=== PATIENT | male | born 1965 | race Caucasian/White ===

== ENCOUNTER 2018-09-19 10:42 | Inpatient (IN) ==
[2018-09-19 11:17] LABS: Eosinophils % 0.5 %; Hematocrit 43.7 % (37.5-50.1); Hemoglobin 13.7 g/dL (12.9-16.9); Immature Granulocytes % 0.2 % (0-4); Lymphocytes % 25.3 %; Mean Corpuscular HGB Conc 31.4 g/dL (31.6-35.5); Mean Corpuscular Hemoglobin 30.9 pg (28.0-33.3); Mean Corpuscular Volume 98.4 fL (83.0-100.0); Mean Platelet Volume 8.8 fL (9.4-12.4); Monocytes % 6.3 %; Platelet Count 287 K/mcL (140-400); Red Blood Count 4.44 M/mcL (4.19-5.50); Red Cell Distribution Width 13.9 % (11.5-14.5)
[2018-09-19 11:18] LABS: Basophils # 0.1 K/mcL (0.0-0.2); Basophils % 0.7 %; Lymphocytes # 2.1 K/mcL (0.6-4.6); Monocytes # 0.5 K/mcL (0.0-1.3); Neutrophils # 5.5 K/mcL (1.6-8.9)
[2018-09-19] MEDS ORDERED: Isovue-370 500 ML BOTTLE IVP ONE ×3 (11:21→18:01)
[2018-09-19 11:26] LABS: INR 1.2
[2018-09-19 11:28] LABS: Activated Partial Thrombo Time 31.4 Seconds (26.0-36.0)
--- NOTE | 2018-09-19 11:28 | Emergency Department Note ---
Disposition Clinical Impression: Elevated brain natriuretic peptide (BNP) level Atrial fibrillation Qualifiers: Atrial fibrillation type: unspecified Qualified Code(s): I48.91 - Unspecified atrial fibrillation Fluid overload Qualifiers: Hypervolemia type: unspecified Qualified Code(s): E87.70 - Fluid overload, unspecified Dyspnea Qualifiers: Dyspnea type: unspecified Qualified Code(s): R06.00 - Dyspnea, unspecified Disposition: Admitted As Inpatient Condition: Fair Referrals: NONE,PCP [Primary Care Provider] - Forms: ED Satisfaction Letter General Adult HPI - General Chief complaint: ED Chest Pain Stated complaint: LETTY Time Seen by Provider: 09/19/18 10:48 Source: patient Limitations: no limitations Nursing Notes Reviewed: Yes Vital Signs Reviewed: Yes - History of Present Illness HPI Narrative: Patient is a 53-year-old male with past medical history including coronary artery disease, atrial fibrillation and defibrillator placement, presenting with chief complaint of shortness of breath for the past 2 weeks. 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 He complains of progressively worsening shortness of breath for the past 2 weeks. He states anything to make it worse. He woke up this morning significantly short of breath and complains of occasional left-si ded chest pain. He also complains of generalized abdominal pain that is sharp. He states he had 1 bowel movement without blood. He denies nausea or vomiting. Pain Scale: 0 - Related Data Home Medications Medication Instructions Recorded Confirmed Furosemide [Lasix] 20 mg PO DAILY PRN 12/04/17 12/04/17 Previous Rx's Medication Instructions Recorded Ibuprofen 800 mg PO 2-3XD PRN #30 tablet 12/04/17 Allergies Allergy/AdvReac Type Severity Reaction Status Date / Time No Known Allergies Allergy Verified 12/04/17 07:19 All systems ED: reviewed and negative except as stated. Review of Systems: As Per HPI Constitutional: Denies: fever, chills Cardiovascular: Reports: chest pain, palpitations Respiratory: Reports: dyspnea. Denies: cough Gastrointestinal: Reports: abdominal pain. Denies: nausea, vomiting, diarrhea Genitourinary: Denies: dysuria, hematuria Musculoskeletal: Denies: back pain Past Medical History - Past Medical History Attestation: Yes The following information was validated with the patient. Source: patient Medical history: Reports: atrial fibrillation, hypertension, myocardial infarction Psychiatric history: Reports: no psych history - Social History Smoking Status: Current every day smoker Alcohol use: Reports: occasionally Drug use: Reports: marijuana Physical Exam - General Limitations: no limitations General appearance: alert, in no apparent distress - Head Head exam: atraumatic, normocephalic - Eye Eye exam: Present: normal appearance, EOMI - ENT ENT exam: normal exam, normal oropharynx - Neck Neck exam: Present: normal inspection, trachea midline - Chest Chest inspection: Present: normal inspection, symmetric chest wall rise - Respiratory Respiratory exam: Present: normal lung sounds bilaterally. Absent: respiratory distress, wheezes - Cardiovascular Cardiovascular exam: Present: other (Irregularly irregular rhythm) - Abdominal Exam Abdominal exam: Present: other (Distended abdomen with generalized tenderness and guarding) - Extremities Exam Extremities exam: Present: normal capillary refill. Absent: pedal edema - Neurological Exam Neurological exam: Present: alert, oriented X3 - Psychiatric Psychiatric exam: Present: normal affect, normal mood - Skin Skin exam: Present: warm, dry, intact. Absent: diaphoresis, pallor Course Vital Signs Temperature 98.6 F 09/19/18 10:56 Pulse Rate 162 09/19/18 10:56 Respiratory Rate 30 09/19/18 10:56 Blood Pressure 149/11 09/19/18 10:56 O2 Sat by Pulse Oximetry 96 09/19/18 10:56 Temperature 98.6 F 09/19/18 10:56 Pulse Rate 118 09/19/18 11:37 Respiratory Rate 24 09/19/18 11:37 Blood Pressure 122/82 09/19/18 11:37 O2 Sat by Pulse Oximetry 92 09/19/18 11:37 Oxygen Delivery Oxygen Delivery Nasal Cannula Medical Decision Making - [facility] Narrative Medical decision making narrative: Patient stopped all of his medications 5 years ago. He has history of atrial fibrillation. He is not taking any anticoagulation states he used to take Pradaxa accepted. He states his defibrillator shocked him a month ago. He is presenting with significantly worsening shortness of breath and abdominal pain. He is in atrial fibrillation with RVR. Not requiring oxygen at this time. He does have significant abdominal distention, tenderness with guarding. We will give the patient a Cardizem bolus followed by titrated Cardizem drip. Once his heart rate is better controlled, will obtain CTA of his abdomen and pelvis to ru le out mesenteric ischemia versus other acute pathology. We will also obtain CBC, BMP, BNP, troponin, chest x-ray, hepatic panel, ethanol level as the patient has history of alcohol use. 12:45 Labs reviewed. BNP is elevated. CT abdomen and pelvis shows significant edema and third spacing. There is no evidence of acute mesenteric ischemia. We will give the patient 40 mg IV Lasix. Heart rate is improved to 115-125 on 5mg of Cardizem drip. Patient states he does feel a little bit better. Discussed with Dr. Collins, hospitalist, who accepts admission for atrial fibrillation with RVR on Cardizem drip and fluid overload. - Medical Records Medical records reviewed: Yes I reviewed the patient's medical records. - Lab Data Lab results reviewed: Yes I reviewed the patient's lab results. Result diagrams: 09/19/18 11:02 09/19/18 11:02 Lab Results 09/19/18 09/19/18 09/19/18 Range/Units 11:02 11:02 11:02 WBC 8.1 (4.3-11.1) K/mcL RBC 4.44 (4.19-5.50) M/mcL Hgb 13.7 (12.9-16.9) g/dL Hct 43.7 (37.5-50.1) % MCV 98.4 (83.0-100.0) fL MCH 30.9 (28.0-33.3) pg MCHC 31.4 L (31.6-35.5) g/dL RDW 13.9 (11.5-14.5) % Plt Count 287 (140-400) K/mcL MPV 8.8 L (9.4-12.4) fL Immature Gran % 0.2 (0-4) % Seg Neutrophils % 67.0 % Lymphocytes % 25.3 % Monocytes % 6.3 % Eosinophils % 0.5 % Basophils % 0.7 % Neutrophils # 5.5 (1.6-8.9) K/mcL Lymphocytes # 2.1 (0.6-4.6) K/mcL Monocytes # 0.5 (0.0-1.3) K/mcL Eosinophils # 0.0 (0.0-0.6) K/mcL Basophils # 0.1 (0.0-0.2) K/mcL PT 13.0 H (9.4-12.1) Seconds INR 1.2 APTT 31.4 (26.0-36.0) Seconds Sodium 139 (136-145) mEq/L Potassium 4.8 (3.5-5.1) mEq/L Chloride 101 (98-107) mEq/L Carbon Dioxide 30 H (23-29) mEq/L BUN 16 (6-20) mg/dL Creatinine 0.90 (0.70-1.30) mg/dL Est GFR ( Amer) > 60 (> 60) Est GFR (Non-Af Amer) > 60 (> 60) BUN/Creatinine Ratio 18 (6-26) Glucose 148 H (70-105) mg/dL Calculated Osmolality 292 (280-300) Calcium 8.9 (8.6-10.3) mg/dL Total Bilirubin 0.6 (0.3-1.0) mg/dL Direct Bilirubin 0.2 (0.0-0.2) mg/dL Indirect Bilirubin 0.4 (0.0-1.2) mg/dL AST 11 L (13-39) Units/L ALT 17 (7-52) Units/L Alkaline Phosphatase 81 (34-104) Units/L Troponin I < 0.03 (< 0.04) ng/mL B-Natriuretic Peptide (Less than 100) pg/mL Serum Total Protein 6.5 (6.4-8.9) g/dL Albumin 3.9 (3.5-5.7) g/dL Globulin 2.6 (2.4-3.5) g/dL Albumin/Globulin Ratio 1.5 (1.1-2.2) Ethyl Alcohol < 10 (Less than 10) mg/dL 09/19/18 Range/Units 11:02 WBC (4.3-11.1) K/mcL RBC (4.19-5.50) M/mcL Hgb (12.9-16.9) g/dL Hct (37.5-50.1) % MCV (83.0-100.0) fL MCH (28.0-33.3) pg MCHC (31.6-35.5) g/dL RDW (11.5-14.5) % Plt Count (140-400) K/mcL MPV (9.4-12.4) fL Immature Gran % (0-4) % Seg Neutrophils % % Lymphocytes % % Monocytes % % Eosinophils % % Basophils % % Neutrophils # (1.6-8.9) K/mcL Lymphocytes # (0.6-4.6) K/mcL Monocytes # (0.0-1.3) K/mcL Eosinophils # (0.0-0.6) K/mcL Basophils # (0.0-0.2) K/mcL PT (9.4-12.1) Seconds INR APTT (26.0-36.0) Seconds Sodium (136-145) mEq/L Potassium (3.5-5.1) mEq/L Chloride (98-107) mEq/L Carbon Dioxide (23-29) mEq/L BUN (6-20) mg/dL Creatinine (0.70-1.30) mg/dL Est GFR ( Amer) (> 60) Est GFR (Non-Af Amer) (> 60) BUN/Creatinine Ratio (6-26) Glucose (70-105) mg/dL Calculated Osmolality (280-300) Calcium (8.6-10.3) mg/dL Total Bilirubin (0.3-1.0) mg/dL Direct Bilirubin (0.0-0.2) mg/dL Indirect Bilirubin (0.0-1.2) mg/dL AST (13-39) Units/L ALT (7-52) Units/L Alkaline Phosphatase (34-104) Units/L Troponin I (< 0.04) ng/mL B-Natriuretic Peptide 530 H (Less than 100) pg/mL Serum Total Protein (6.4-8.9) g/dL Albumin (3.5-5.7) g/dL Globulin (2.4-3.5) g/dL Albumin/Globulin Ratio (1.1-2.2) Ethyl Alcohol (Less than 10) mg/dL - Radiology Data Radiology results reviewed: Yes I reviewed the patient's radiology results. Chest X-Ray 09/19/18 10:47 IMPRESSION: Cardiomegaly with mild pulmonary edema. Right basilar opacities, which could represent atelectasis or pneumonia. D/ / Giorgio Hearn MD / Giorgio Hearn MD Interpreting Provider: Giorgio Hearn MD Abdomen/Pelvis CTA 09/19/18 11:21 IMPRESSION: 1. No evidence of mesenteric ischemia. 2. Findings compatible with diffuse 3rd spacing/elevated central venous pressures, including interstitial pulmonary edema, small to moderate bilateral pleural effusions, small amount of ascites, and diffuse soft tissue anasarca. 3. Severe edema of the gallbladder wall, which is favored to be related to the diffusely edematous state. No gallstones are seen. D/ / 09/19/2018 12:20:57 iGorgio Hearn MD / earnold Interpreting Provider: Giorgio Hearn MD - EKG Data EKG #1 EKG attestation: Yes I reviewed and interpreted this EKG. EKG results narrative: EKG obtained at 1053 shows atrial fibrillation with rapid ventricular rate with heart rate 166, QRS duration 85, QTC 296, QTC 492. No ST elevation or depression. There are T-wave inversions in V6. Compared to old EKG on 12/15/2013 which at that time showed sinus bradycardia.
--- NOTE | 2018-09-19 11:29 | Emergency Department Note ---
Disposition Clinical Impression: Elevated brain natriuretic peptide (BNP) level Atrial fibrillation Qualifiers: Atrial fibrillation type: unspecified Qualified Code(s): I48.91 - Unspecified atrial fibrillation Fluid overload Qualifiers: Hypervolemia type: unspecified Qualified Code(s): E87.70 - Fluid overload, unspecified Dyspnea Qualifiers: Dyspnea type: unspecified Qualified Code(s): R06.00 - Dyspnea, unspecified Disposition: Admitted As Inpatient Condition: Fair General Adult HPI - General Chief complaint: ED Chest Pain Stated complaint: LETTY Time Seen by Provider: 09/19/18 10:48 Source: patient Limitations: no limitations Nursing Notes Reviewed: Yes Vital Signs Reviewed: Yes - History of Present Illness Pain Scale: 0 - Related Data Home Medications Medication Instructions Recorded Confirmed Furosemide [Lasix] 20 mg PO DAILY PRN 12/04/17 12/04/17 Previous Rx's Medication Instructions Recorded Ibuprofen 800 mg PO 2-3XD PRN #30 tablet 12/04/17 Allergies Allergy/AdvReac Type Severity Reaction Status Date / Time No Known Allergies Allergy Verified 12/04/17 07:19 Past Medical History - Past Medical History Medical history: Reports: atrial fibrillation, hypertension, myocardial infarction Psychiatric history: Reports: no psych history - Social History Smoking Status: Current every day smoker Alcohol use: Reports: occasionally Drug use: Reports: marijuana Physical Exam - General Limitations: no limitations General appearance: alert, in no apparent distress Course Vital Signs Temperature 98.6 F 09/19/18 10:56 Pulse Rate 162 09/19/18 10:56 Respiratory Rate 30 09/19/18 10:56 Blood Pressure 149/11 09/19/18 10:56 O2 Sat by Pulse Oximetry 96 09/19/18 10:56 Temperature 98.6 F 09/19/18 10:56 Pulse Rate 132 09/19/18 13:36 Respiratory Rate 26 09/19/18 13:07 Blood Pressure 144/95 09/19/18 13:36 O2 Sat by Pulse Oximetry 91 09/19/18 13:07 Oxygen Delivery Oxygen Delivery Nasal Cannula Medical Decision Making - [facility] Narrative Medical decision making narrative: Chest X-Ray 09/19/18 10:47 IMPRESSION: Cardiomegaly with mild pulmonary edema. Right basilar opacities, which could represent atelectasis or pneumonia. D/ / Giorgio Hearn MD / Giorgio Hearn MD Interpreting Provider: Giorgio Hearn MD 1220 hrs.: Patient sees CT and chest x-ray is back were in a bring him into the hospital with acute exacerbation of heart failure A. fib with RVR. Patient's agreement with this plan. Chest X-Ray 09/19/18 10:47 IMPRESSION: Cardiomegaly with mild pulmonary edema. Right basilar opacities, which could represent atelectasis or pneumonia. D/ / Giorgio Hearn MD / Giorgio Hearn MD Interpreting Provider: Giorgio Hearn MD Abdomen/Pelvis CTA 09/19/18 11:21 IMPRESSION: 1. No evidence of mesenteric ischemia. 2. Findings compatible with diffuse 3rd spacing/elevated central venous pressures, including interstitial pulmonary edema, small to moderate bilateral pleural effusions, a small amount of ascites, and diffuse soft tissue anasarca. 3. Severe edema of the gallbladder wall is present, which is favored to be related to the diffusely edematous state. No gallstones are seen. D/ / Giorgio Hearn MD / Giorgio Hearn MD Interpreting Provider: Giorgio Hearn MD - Lab Data Result diagrams: 09/19/18 11:02 09/19/18 11:02 Lab Results 09/19/18 09/19/18 09/19/18 Range/Units 11:02 11:02 11:02 WBC 8.1 (4.3-11.1) K/mcL RBC 4.44 (4.19-5.50) M/mcL Hgb 13.7 (12.9-16.9) g/dL Hct 43.7 (37.5-50.1) % MCV 98.4 (83.0-100.0) fL MCH 30.9 (28.0-33.3) pg MCHC 31.4 L (31.6-35.5) g/dL RDW 13.9 (11.5-14.5) % Plt Count 287 (140-400) K/mcL MPV 8.8 L (9.4-12.4) fL Immature Gran % 0.2 (0-4) % Seg Neutrophils % 67.0 % Lymphocytes % 25.3 % Monocytes % 6.3 % Eosinophils % 0.5 % Basophils % 0.7 % Neutrophils # 5.5 (1.6-8.9) K/mcL Lymphocytes # 2.1 (0.6-4.6) K/mcL Monocytes # 0.5 (0.0-1.3) K/mcL Eosinophils # 0.0 (0.0-0.6) K/mcL Basophils # 0.1 (0.0-0.2) K/mcL PT 13.0 H (9.4-12.1) Seconds INR 1.2 APTT 31.4 (26.0-36.0) Seconds Sodium 139 (136-145) mEq/L Potassium 4.8 (3.5-5.1) mEq/L Chloride 101 (98-107) mEq/L Carbon Dioxide 30 H (23-29) mEq/L BUN 16 (6-20) mg/dL Creatinine 0.90 (0.70-1.30) mg/dL Est GFR ( Amer) > 60 (> 60) Est GFR (Non-Af Amer) > 60 (> 60) BUN/Creatinine Ratio 18 (6-26) Glucose 148 H (70-105) mg/dL Calculated Osmolality 292 (280-300) Calcium 8.9 (8.6-10.3) mg/dL Phosphorus 4.6 H (2.7-4.5) mg/dL Magnesium 2.1 (1.6-2.6) mg/dL Total Bilirubin 0.6 (0.3-1.0) mg/dL Direct Bilirubin 0.2 (0.0-0.2) mg/dL Indirect Bilirubin 0.4 (0.0-1.2) mg/dL AST 11 L (13-39) Units/L ALT 17 (7-52) Units/L Alkaline Phosphatase 81 (34-104) Units/L Troponin I < 0.03 (< 0.04) ng/mL B-Natriuretic Peptide (Less than 100) pg/mL Serum Total Protein 6.5 (6.4-8.9) g/dL Albumin 3.9 (3.5-5.7) g/dL Globulin 2.6 (2.4-3.5) g/dL Albumin/Globulin Ratio 1.5 (1.1-2.2) Triglycerides 109 (< 150) mg/dL Cholesterol 116 (< 200) mg/dL LDL Cholesterol, Calc 59 (0-99) mg/dL VLDL Cholesterol, Calc 22 (< 31) mg/dL HDL Cholesterol 35 L (40-59) mg/dL Cholesterol/HDL Ratio 3.3 (0-4.9) Ethyl Alcohol < 10 (Less than 10) mg/dL 09/19/18 Range/Units 11:02 WBC (4.3-11.1) K/mcL RBC (4.19-5.50) M/mcL Hgb (12.9-16.9) g/dL Hct (37.5-50.1) % MCV (83.0-100.0) fL MCH (28.0-33.3) pg MCHC (31.6-35.5) g/dL RDW (11.5-14.5) % Plt Count (140-400) K/mcL MPV (9.4-12.4) fL Immature Gran % (0-4) % Seg Neutrophils % % Lymphocytes % % Monocytes % % Eosinophils % % Basophils % % Neutrophils # (1.6-8.9) K/mcL Lymphocytes # (0.6-4.6) K/mcL Monocytes # (0.0-1.3) K/mcL Eosinophils # (0.0-0.6) K/mcL Basophils # (0.0-0.2) K/mcL PT (9.4-12.1) Seconds INR APTT (26.0-36.0) Seconds Sodium (136-145) mEq/L Potassium (3.5-5.1) mEq/L Chloride (98-107) mEq/L Carbon Dioxide (23-29) mEq/L BUN (6-20) mg/dL Creatinine (0.70-1.30) mg/dL Est GFR ( Amer) (> 60) Est GFR (Non-Af Amer) (> 60) BUN/Creatinine Ratio (6-26) Glucose (70-105) mg/dL Calculated Osmolality (280-300) Calcium (8.6-10.3) mg/dL Phosphorus (2.7-4.5) mg/dL Magnesium (1.6-2.6) mg/dL Total Bilirubin (0.3-1.0) mg/dL Direct Bilirubin (0.0-0.2) mg/dL Indirect Bilirubin (0.0-1.2) mg/dL AST (13-39) Units/L ALT (7-52) Units/L Alkaline Phosphatase (34-104) Units/L Troponin I (< 0.04) ng/mL B-Natriuretic Peptide 530 H (Less than 100) pg/mL Serum Total Protein (6.4-8.9) g/dL Albumin (3.5-5.7) g/dL Globulin (2.4-3.5) g/dL Albumin/Globulin Ratio (1.1-2.2) Triglycerides (< 150) mg/dL Cholesterol (< 200) mg/dL LDL Cholesterol, Calc (0-99) mg/dL VLDL Cholesterol, Calc (< 31) mg/dL HDL Cholesterol (40-59) mg/dL Cholesterol/HDL Ratio (0-4.9) Ethyl Alcohol (Less than 10) mg/dL Attestation Statement - Attestation Attestation: This documentation is done with the assistance of Dragon dictation. Despite efforts made to ensure accuracy, there may be inaccuracies in vendor representatives or spelling and typographical errors. I examined this patient and my medical decision-making was reviewed with the Resident Physician. I agree with the documented findings, disposition and treatment plan as described except to the extent set forth below. Patient presents today in the emergency department seen by Dr. baker and myself, I agree with her evaluation and management plan, supervise care the patient's stay. Dominguez turcios presents today with abdominal pain and irregular heartbeat. History of atrial fibrillation. Has not seen his doctor and some years. No chest pain. Going to do a workup on him start him on Cardizem to control his rate CT his abdomen he will need admission. He is in agreement with plan.
[2018-09-19 11:34] LABS: BUN/Creatinine Ratio 18 (6-26); Blood Urea Nitrogen 16 mg/dL (6-20); Calcium 8.9 mg/dL (8.6-10.3); Carbon Dioxide 30 mEq/L (23-29); Chloride 101 mEq/L (98-107); Glucose 148 mg/dL (70-105); Osmolality,Calculated 292 (280-300); Potassium 4.8 mEq/L (3.5-5.1); Sodium 139 mEq/L (136-145); eGFR For Non-African Americans > 60 (> 60)
[2018-09-19 11:35] LABS: Troponin I < 0.03 ng/mL (< 0.04)
[2018-09-19 11:51] LABS: Alanine Aminotransferase 17 Units/L (7-52); Albumin 3.9 g/dL (3.5-5.7); Albumin/Globulin Ratio 1.5 (1.1-2.2); Alkaline Phosphatase 81 Units/L (34-104); Aspartate Amino Transferase 11 Units/L (13-39); Bilirubin,Direct 0.2 mg/dL (0.0-0.2); Bilirubin,Indirect 0.4 mg/dL (0.0-1.2); Bilirubin,Total 0.6 mg/dL (0.3-1.0); Ethanol < 10 mg/dL (Less than 10); Globulin 2.6 g/dL (2.4-3.5); Total Protein 6.5 g/dL (6.4-8.9)
[2018-09-19] MEDS ORDERED: Furosemide 40 MG/4 ML VIAL IVP ONE (12:19)
[2018-09-19] MEDS ORDERED: Naloxone 0.4 MG/ML INJ IVP PRN (12:53)
[2018-09-19] MEDS ORDERED: traMADol 50 MG TABLET PO PRN (12:53)
[2018-09-19 13:25] LABS: Chol/HDL Ratio 3.3 (0-4.9); Cholesterol 116 mg/dL (< 200); HDL Cholesterol 35 mg/dL (40-59); LDL Cholesterol,Calculated 59 mg/dL (0-99); Magnesium 2.1 mg/dL (1.6-2.6); Phosphorous 4.6 mg/dL (2.7-4.5); Triglycerides 109 mg/dL (< 150)
[2018-09-19] MEDS ORDERED: *HR* Heparin 5,000 UNIT/ML VIAL SQ SCH (14:00)
--- NOTE | 2018-09-19 14:20 | Internal Med History&Physical ---
Date of Encounter: 09/19/18 Time of Encounter: 14:18 Internal Medicine - H&P: HPI Chief complaint: shortness of breath Admitted From: Home Plans for Post Hospital Care: Home History of present illness: Mr. Marie is a 53 year old male PMH of tobacco abuse, HTN, CAD, A.fib s/p pacemaker and medication noncompliance. Patient presented to the ED due to a week history of worsening shortness of breath. Patient reports that he stopped taking all his medications about 5 years ago and has not followed up with any physician since. Today he presents to the ED due to shortness of breath which has been gradually getting worse for the past week, reports that now he is short of breath even at rest. Admits palpitation, but denies light headedness. Reports orthopnea, and slightly swelling of his lower extremities. report productive cough of clear sputum. Denies fever or chills. Reports generalized abdominal discomfort. denies nausea or vomiting. In the ED patient was found to be in A.fib with RvR. Hospitalist team called for coordination of care and management. Past Med Surg Social Fam HX - Past Medical History Medical history: atrial fibrillation, hypertension, myocardial infarction Psychiatric history: no psych history - Social History Smoking Status: Current every day smoker Alcohol use: occasionally Drug use: marijuana Internal Medicine - H&P: Meds Furosemide [Lasix] 20 mg PO DAILY PRN 12/04/17 [History] Ibuprofen 800 mg PO 2-3XD PRN #30 tablet 12/04/17 [Rx] Allergy/AdvReac Type Severity Reaction Status Date / Time No Known Allergies Allergy Verified 12/04/17 07:19 All Systems PM: A 10-system review of systems was performed and is negative for pertinent findings except as documented above in the HPI. - Constitutional Constitutional: weakness, no chills, no fever(s) - EENT Eyes: no irritation, no loss of peripheral vision Nose, mouth and throat: no sinus pain, no sinus pressure - Cardiovascular Cardiovascular ROS IM: dyspnea, dyspnea on exertion, edema, irregular heart rhythm, orthopnea, palpitations, paroxysmal nocturnal dyspnea, no chest pain, no diaphoresis - Respiratory Respiratory: cough, no pain on inspiration, no chest congestion, no excessive phlegm production, no change in phlegm color - Gastrointestinal Gastrointestinal: abdominal pain (discomfort ), no nausea, no vomiting - Genitourinary Genitourinary ROS male: no difficulty urinating, no dysuria, no nocturia - Musculoskeletal Musculoskeletal ROS IM: no limited range of motion, no muscle cramps - Integumentary Integumentary IM: no pruritus, no sores - Neurological Neurological ROS: no dizziness, no focal weakness, no frequent falls - Psychiatric Psychiatric: no anxiety, no hopelessness, no irritability - Hematologic/Lymphatic Hematologic/Lymphatic: no lymphadenopathy - Allergic/Immunologic Allergic/Immunologic: no GI upset with certain foods - Constitutional Vitals: Temp Pulse Resp BP Pulse Ox 98.6 F 132 26 144/95 91 09/19/18 10:56 09/19/18 13:36 09/19/18 13:07 09/19/18 13:36 09/19/18 13:07 Exam: Vitals: Reviewed General: Alert and oriented x4. In mild distress due to shortness of breath Skin: Normal color, no rash, no lesions. HEENT: EOM, pupils equal, round and reactive. Cardiovascular: Irregularly irregular, normal S1 & S2, no rubs, murmurs or gallops. JVD about 8-9cms. Lungs: decreased breath sounds at the left lower lobe Abdomen: Distended, soft, non-tender, no rigidity. Extremities: No peripheral edema. +2 dorsalis pedis pulses. No cyanosis or clubbing Neurological: Normal cognition and motor skills. Rest of the physical exam is non contributory Internal Med - H&P Results - Labs CBC & Chem 7: 09/19/18 11:02 09/19/18 11:02 Labs: Short CBC 09/19/18 Range/Units 11:02 WBC 8.1 (4.3-11.1) K/mcL Hgb 13.7 (12.9-16.9) g/dL Hct 43.7 (37.5-50.1) % Plt Count 287 (140-400) K/mcL Neutrophils # 5.5 (1.6-8.9) K/mcL BMP 09/19/18 11:02 Sodium 139 Potassium 4.8 Chloride 101 Carbon Dioxide 30 H BUN 16 Creatinine 0.90 Glucose 148 H Calcium 8.9 Cardiac Enzymes 09/19/18 Range/Units 11:02 Troponin I < 0.03 (< 0.04) ng/mL Liver Function 09/19/18 Range/Units 11:02 Total Bilirubin 0.6 (0.3-1.0) mg/dL Direct Bilirubin 0.2 (0.0-0.2) mg/dL AST 11 L (13-39) Units/L ALT 17 (7-52) Units/L Alkaline Phosphatase 81 (34-104) Units/L Albumin 3.9 (3.5-5.7) g/dL - Impressions ITS Impressions Chest X-Ray 09/19/18 10:47 IMPRESSION: Cardiomegaly with mild pulmonary edema. Right basilar opacities, which could represent atelectasis or pneumonia. D/ / Giorgio Hearn MD / Giorgio Hearn MD Interpreting Provider: Giorgio Hearn MD Abdomen/Pelvis CTA 09/19/18 11:21 IMPRESSION: 1. No evidence of mesenteric ischemia. 2. Findings compatible with diffuse 3rd spacing/elevated central venous pressures, including interstitial pulmonary edema, small to moderate bilateral pleural effusions, small amount of ascites, and diffuse soft tissue anasarca. 3. Severe edema of the gallbladder wall, which is favored to be related to the diffusely edematous state. No gallstones are seen. D/ / 09/19/2018 12:20:57 Giorgio Hearn MD / [facility] Interpreting Provider: Giorgio Hearn MD - Diagnostic Studies Chest x-ray Status: image reviewed by me (right lower lobe opacity ) - Assessment and Plan (1) Atrial fibrillation with rapid ventricular response Current Visit: Yes Status: Acute Assessment and plan: patient presenting due to shortness of breath and palpitations. non-compliant with his medications for the past 5 years. Plan continue diltiazem drip started on metoprolol 50mg/PO daily reports he used to take pradaxa. will resume medication Cardiology consulted for possible pacemaker interrogation TSH ordered (2) Congestive heart failure (CHF) Current Visit: Yes Status: Acute Assessment and plan: patient reporting orthopnea. chest x-ray withh mild pulmonary edema. Plan: started on furosemide 40mg/IV BID strict intake and output water restriction to 1.5 litters a day. daily weight 2 gram sodium diet will continue to follow cardiology recommendations started on metoprolol. TTE ordered Qualifiers: Heart failure type: unspecified Heart failure chronicity: acute Qualified Code(s): I50.9 - Heart failure, unspecified (3) Tobacco abuse Current Visit: Yes Status: Chronic (4) Pneumonia Current Visit: Yes Status: Suspected Assessment and plan: XR/XR chest 1V portable IMPRESSION: Cardiomegaly with mild pulmonary edema. Right basilar opacities, which could represent atelectasis or pneumonia. Plan: Patient started on levofloxacin 750mg/IV daily. Qualifiers: Pneumonia type: due to unspecified organism Laterality: right Lung location: lower lobe of lung Qualified Code(s): J18.1 - Lobar pneumonia, unspecified organism (5) DVT prophylaxis Current Visit: Yes Status: Acute Assessment and plan: patient started on pradaxa due to A.fib (6) HLD (hyperlipidemia) Current Visit: Yes Status: Chronic Assessment and plan: patient started on atorvastatin 40mg/PO daily Qualifiers: Hyperlipidemia type: unspecified Qualified Code(s): E78.5 - Hyperlipidemia, unspecified (7) Hyperglycemia Current Visit: Yes Status: Acute Assessment and plan: unknown hx of diabetes. A1C ordered. (8) CAD (coronary artery disease) Current Visit: Yes Status: Chronic Assessment and plan: Reports having 2 AL in the past. started on aspirin 81mg/PO daily. Qualifiers: Coronary Disease-Associated Artery/Lesion type: unspecified vessel or lesion type Andre[place] vs. transplanted heart: unspecified whether osage or transplanted heart Associated angina: angina presence unspecified Qualified Code(s): I25.10 - Atherosclerotic heart disease of [place] coronary artery without angina pectoris - Time Spent With Patient Total time spent is greater than 50% in coordination of care (as documented) at patient's floor/unit and/or counseling patient: Greater than 35 minutes (45)
--- NOTE | 2018-09-19 16:03 | Electrocardiograph Report ---
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
[2018-09-19] MEDS: Aspirin Enteric Coated 81 MG Tablet PO SCH (16:50)
[2018-09-19] MEDS: Metoprolol XL (24 HR) Succ 50 MG TAB.ER.24H PO SCH (16:50)
[2018-09-19] MEDS: Furosemide 40 MG/4 ML VIAL IVP SCH (16:50)
[2018-09-19] MEDS: Levofloxacin 750 MG/150 ML 750 MG/150 ML BAG IVPB SCH (16:59)
[2018-09-19 17:41] LABS: Amphetamine Screen,Urine Negative ng/mL (Cutoff=1000); Barbiturate Screen,Urine Negative ng/mL (Cutoff=200); Benzodiazepines Screen,Urine Negative ng/mL (Cutoff=200); Cannabinoid Screen,Urine Negative ng/mL (Cutoff = 50); Cocaine Screen,Urine Negative ng/mL (Cutoff= 300); Opiate Screen,Urine Negative ng/mL (Cutoff=300); Phencyclidine Screen,Urine Negative ng/mL (Cutoff=25)
[2018-09-19] MEDS: *HR* Dabigatran 150 MG CAPSULE PO SCH (20:15)
[2018-09-19 23:49] LABS: Estimated Average Glucose 137 mg/dl; Hemoglobin A1C 6.4 %
[2018-09-20 05:54] LABS: Basophils % 0.5 %; Eosinophils # 0.1 K/mcL (0.0-0.6); Eosinophils % 1.8 %; Hematocrit 39.4 % (37.5-50.1); Hemoglobin 12.2 g/dL (12.9-16.9); Immature Granulocytes % 0.1 % (0-4); Lymphocytes # 1.8 K/mcL (0.6-4.6); Mean Corpuscular Hemoglobin 29.9 pg (28.0-33.3); Mean Corpuscular Volume 96.6 fL (83.0-100.0); Mean Platelet Volume 8.7 fL (9.4-12.4); Monocytes # 0.6 K/mcL (0.0-1.3); Monocytes % 8.3 %; Neutrophils # 5.1 K/mcL (1.6-8.9); Platelet Count 248 K/mcL (140-400); Red Blood Count 4.08 M/mcL (4.19-5.50); Red Cell Distribution Width 13.7 % (11.5-14.5); Segmented Neutrophils % 66.3 %
[2018-09-20 06:18] LABS: BUN/Creatinine Ratio 16 (6-26); Blood Urea Nitrogen 14 mg/dL (6-20); Calcium 8.7 mg/dL (8.6-10.3); Carbon Dioxide 32 mEq/L (23-29); Chloride 100 mEq/L (98-107); Glucose 123 mg/dL (70-105); Osmolality,Calculated 292 (280-300); Potassium 4.2 mEq/L (3.5-5.1); Sodium 140 mEq/L (136-145); eGFR For Non-African Americans > 60 (> 60)
[2018-09-20] MEDS: Levofloxacin 750 MG/150 ML 750 MG/150 ML BAG IVPB SCH (07:04)
[2018-09-20] MEDS: Aspirin Enteric Coated 81 MG Tablet PO SCH (07:04)
[2018-09-20] MEDS: Furosemide 40 MG/4 ML VIAL IVP SCH ×2 (07:04→16:35)
[2018-09-20] MEDS: *HR* Dabigatran 150 MG CAPSULE PO SCH (07:04)
--- NOTE | 2018-09-20 07:44 | Internal Med Progress Note ---
Hospitalist Progress Note - Encounter Date of Encounter: 09/20/18 Time of Encounter: 07:44 - Subjective Interval History: Mr. Marie was seen and evaluated the bedside. He reports improvement in his breathing, denies any shortness breath at this time. Patient stated that he did have palpitations prior to arrival; however, this has since resolved with p lacement on Cardizem drip. He denies any acute complaints or concerns at this time, and nursing staff reports no significant overnight events. - Exam Vitals: Temp Pulse Resp BP Pulse Ox 98.0 F 92 20 100/81 93 09/20/18 06:50 09/20/18 06:50 09/20/18 06:50 09/20/18 06:50 09/20/18 07:13 Exam: GENERAL: Well-developed, well-nourished adult male in no acute distress. HEENT: Atraumatic and normocephalic. CARDIOVASCULAR: Irregular rhythm.. S1 and S2 present. No murmurs, gallops, or rubs. RESPIRATORY: Clear to auscultation bilaterally. Chest rises and falls symmetrically without accessory muscle use. GASTROINTESTINAL: Abdomen is soft, nontender, nondistended. EXTREMITIES: No clubbing or cyanosis. Mild nonpitting bilateral lower extremity edema. SKIN: Warm, dry, and intact. NEUROLOGIC: Alert and oriented x3. Patient is cooperative with exam and answers questions appropriately. No apparent focal deficits. PSYCHIATRIC: Appropriate mood and affect. - Assessment and Plan (1) Atrial fibrillation with rapid ventricular response Current Visit: Yes Status: Acute Assessment and Plan: Patient probably has a history of atrial fibrillation, and has had pacemaker insertion in the past. He is been reportedly noncompliant with medications, having not taken any for the last 5 years. Patient was started on a Cardizem drip last night for rate control, which has been titrated down per protocol. - Cardiology consult placed for recommendations and possible pacemaker interrogation. - Continue metoprolol. Continue Cardizem per cardiology recommendations. - Echocardiogram pending. - Continue telemetry monitoring. (2) Congestive heart failure (CHF) Current Visit: Yes Status: Acute Assessment and Plan: Patient has no history of congestive heart failure; however, upon initial presentation, patient was noted to have orthopnea. - Continue IV Lasix 40 mg BID. - Echocardiogram pending. - Fluid restriction to 1.5 L daily. Strict I's and O's and daily weights. - Appreciate cardiology recommendations regarding this problem. (3) Pneumonia Current Visit: Yes Status: Suspected Assessment and Plan: Initial chest x-ray was concerning for possible pneumonia, with right bibasilar opacities noted. Patient did have CTA of the chest, which noted vascular congestion; however, there is no apparent evidence of consolidation. Patient is afebrile, and denies any increased chest congestion, sputum production, or other symptoms of acute infectious process. He was started on IV antibiotic therapy with Levaquin 750 mg daily. - Urine legionella and strep pneumo antigens pending. - Anticipate discontinuing antibiotic therapy pending negative urine antigens. (4) Tobacco abuse Current Visit: Yes Status: Chronic Assessment and Plan: - Tobacco cessation counseling provided. - Nicotine patch PRN. (5) DVT prophylaxis Current Visit: Yes Status: Acute Assessment and Plan: - Heparin SQ. - Time Spent with Patient Total time spent is greater than 50% in coordination of care (as documented) at patient's floor/unit and/or counseling patient: Internal Medicine: Result - Labs CBC & Chem 7: 09/20/18 05:39 09/20/18 05:39 Labs: Short CBC 09/19/18 09/20/18 Range/Units 11:02 05:39 WBC 8.1 7.6 (4.3-11.1) K/mcL Hgb 13.7 12.2 L D (12.9-16.9) g/dL Hct 43.7 39.4 (37.5-50.1) % Plt Count 287 248 (140-400) K/mcL Neutrophils # 5.5 5.1 (1.6-8.9) K/mcL BMP 09/19/18 09/20/18 11:02 05:39 Sodium 139 140 Potassium 4.8 4.2 Chloride 101 100 Carbon Dioxide 30 H 32 H BUN 16 14 Creatinine 0.90 0.86 Glucose 148 H 123 H Calcium 8.9 8.7 Cardiac Enzymes 09/19/18 09/19/18 09/19/18 Range/Units 11:02 16:50 23:09 Troponin I < 0.03 < 0.03 < 0.03 (< 0.04) ng/mL 09/20/18 Range/Units 05:39 Troponin I < 0.03 (< 0.04) ng/mL Liver Function 09/19/18 Range/Units 11:02 Total Bilirubin 0.6 (0.3-1.0) mg/dL Direct Bilirubin 0.2 (0.0-0.2) mg/dL AST 11 L (13-39) Units/L ALT 17 (7-52) Units/L Alkaline Phosphatase 81 (34-104) Units/L Albumin 3.9 (3.5-5.7) g/dL - ABG Interpretation ABG results: PT/INR, D-dimer PT 13.0 Seconds (9.4-12.1) H 09/19/18 11:02 D-Dimer 1367 ng/mLFEU (0-500) H 09/19/18 15:02 - Impressions Impressions Chest X-Ray 09/19/18 10:47 IMPRESSION: Cardiomegaly with mild pulmonary edema. Right basilar opacities, which could represent atelectasis or pneumonia. D/ / Giorgio Hearn MD / Giorgio Hearn MD Interpreting Provider: Giorgio Hearn MD Abdomen/Pelvis CTA 09/19/18 11:21 IMPRESSION: 1. No evidence of mesenteric ischemia. 2. Findings compatible with diffuse 3rd spacing/elevated central venous pressures, including interstitial pulmonary edema, small to moderate bilateral pleural effusions, small amount of ascites, and diffuse soft tissue anasarca. 3. Severe edema of the gallbladder wall, which is favored to be related to the diffusely edematous state. No gallstones are seen. D/ / 09/19/2018 12:20:57 Giorgio Hearn MD / [facility] Interpreting Provider: Giorgio Hearn MD Chest CTA 09/19/18 18:01 IMPRESSION: 1. No acute pulmonary artery embolism. 2. Cardiomegaly with vascular congestion and bilateral pleural effusions. 3. Cirrhotic appearance of the liver. D/ / 09/19/2018 19:07:36 Samuel Alford MD / [facility] Interpreting Provider: Samuel Alford MD Consult Discharge Plan - Plan Referrals: NONE,PCP [Primary Care Provider] - (2) Congestive heart failure (CHF) Qualifiers: Heart failure type: unspecified Heart failure chronicity: acute Qualified Code(s): I50.9 - Heart failure, unspecified (3) Pneumonia Qualifiers: Pneumonia type: due to unspecified organism Laterality: right Lung location: lower lobe of lung Qualified Code(s): J18.1 - Lobar pneumonia, unspecified organism
[2018-09-20] MEDS: Metoprolol XL (24 HR) Succ 50 MG TAB.ER.24H PO SCH (08:54)
--- NOTE | 2018-09-20 09:40 | Event Note ---
Date of Encounter: 09/20/18 Time of Encounter: 09:32 Patient was seen and examined. I agree with the progress note as written by the resident physician. Doing better. Shortness of breath better. Rate better contorlled. Patient admitted with sings of CHF, Afib RVR, and community acquired penumonia. Has not bee following up with physicians for years. Started on cardizem drip. Has pacemaker. GEN: NAD CVS:Irregular. S1, S2, No m/r/g RESP: CTAB ABD: Soft, NT, ND, +BS EXT: No edema. 2+ DP. No rashes NEURO: Nonfocal Rate better controlled on cardizem drip. cardiology consulted on admission c/w BB cw Pradaxa C/w IV lasix 40 mg BID c/w levaquin. check urine strep and legioneall. No real convincing signs of pneumonia f/u on TTE.
[2018-09-20] MEDS ORDERED: Perflutren Lipid Microsphere 1.3 ML in 0.9 % Sodium Chloride 8.7 ML IVP ONE (11:05)
[2018-09-20] MEDS ORDERED: Perflutren Lipid Microsphere 2 ML VIAL ONE (11:08)
--- NOTE | 2018-09-20 11:35 | Cardiology Consult Note ---
<Jyoti Mcknight - Last Filed: 09/20/18 14:08> Date of Encounter: 09/20/18 Time of Encounter: 11:35 Assessment and Plan (1) Atrial fibrillation with rapid ventricular response Current Visit: Yes Status: Acute History of atrial fibrillation Has been off all medications for past 5 years More rate controlled today, average HR overnight was 90 TSH WNL Discontinue diltiazem drip Pradaxa on hold as may be going for LHC tomorrow depending on echocardiogram Defibrillator to be interrogated. 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 Last Echo 2013- LVEF 60%, normal left ventricular structure and function, mild left ventricular diastolic dysfunction, normal RV structure and function, no evidence of pulmonary hypertension, device lead visualized in rigth atrium and right ventricle, no significant valvular dysfunction, EF had improved. CTA chest shows cardiomegaly with vascular congestion and bilateral pleural pleural effusions Echo pending Continue Lasix, metoprolol Strict I&O Fluid restriction 1.5 L Possible LHC tomorrow. Qualifiers: Heart failure type: unspecified Heart failure chronicity: acute Qualified Code(s): I50.9 - Heart failure, unspecified (3) Alcoholic cardiomyopathy Current Visit: Yes Status: Acute History of alcoholic cardiomyopathy Patient states he no longer drinks as much as prior CTA chest showed cardiomegaly with vascular congestion and bilateral pleural effusions, cirrhotic appearance of liver See managment for CHF (4) Pneumonia Current Visit: Yes Status: Suspected Patient being treated for pneumonia CTA chest negative for PE Continue levofloxacin . Qualifiers: Pneumonia type: due to unspecified organism Laterality: right Lung location: lower lobe of lung Qualified Code(s): J18.1 - Lobar pneumonia, unspecified organism (5) CAD (coronary artery disease) Current Visit: Yes Status: Chronic Possible history of CAD Old records show LHC done in 2009, however report is unavailable. Denies prior MIs Continue aspirin, atorvastatin, metoprolol Qualifiers: Coronary Disease-Associated Artery/Lesion type: unspecified vessel or lesion type [place] vs. transplanted heart: unspecified whether [place] or transplanted heart Associated angina: angina presence unspecified Qualified Code(s): I25.10 - Atherosclerotic heart disease of [place] coronary artery without angina pectoris (6) Tobacco abuse Current Visit: Yes Status: Chronic Discussed smoking cessation Advised to quit to reduce risk factors (7) DVT prophylaxis Current Visit: Yes Status: Acute SQ heparin Discussion w patient/family: The assessment and plan as outlined above was discussed with the patient and/or family members who expressed understanding and agreement. All questions were answered. Thank you for involving us in the care of your patient. Please call with any questions. History of Present Illness Consult date: 09/20/18 Consult reason: Afib Chief complaint: Shortness of breath History of present illness: Mr. Marie is a 53 year old male who presented yesterday with complaint of progressive shortness of breath. PMH of CAD with LHC unknown stenting in 2009, alcoholic cardiomyopathy, atrial fibrillation, defibrillator, CHF, HTN and tobacco abuse. States that he has not seen a doctor in past 5 years and stopped taking all medications 5 years ago. He states that he has had progressive shortness of breath for the past 2 weeks that occurs at rest and exertion. He also complains of palptiations, orthopnea, paroxysmal nocturnal dyspnea, productive cough and dyspnea. He denies chest pain. He also states that his defibrillator discharged once about 1-2 months ago however he has not had it interrogated for 5 years. He denies nausea, vomiting, fever, chills, lightheadedness, syncope, weakness, falls, vision or hearing changes, dysphagia, chest pain, pleuritic pain, abdominal pain, diarrhea, constipation, melena, hematochezia, dysuria, hematuria, calf pain. He states that he is continuing to drink small amounts of alcohol. Past Med Surg Social Fam HX - Past Medical History Medical history: atrial fibrillation, hypertension, myocardial infarction Additional medical history: NM:2010, 2011. Defibrillator 2011 Psychiatric history: no psych history - Past Surgical History Additional surgical history: Defib placement - Social History Smoking Status: Current every day smoker Packs per day: <1 Alcohol use: occasionally Drug use: marijuana - Family History Father Hx Family Cardiac Disorders: Yes Hx Family Cancer: Yes Mother Hx Family Cancer: Yes Medications and Allergies No Known Home Drugs 09/19/18 [History] Allergy/AdvReac Type Severity Reaction Status Date / Time No Known Allergies Allergy Verified 09/19/18 15:27 All Systems Review: The remainder of the systems were reviewed and are negative - Constitutional Constitutional: no chills, no fever(s) - EENT Eyes: no blurred vision Nose, mouth and throat: no dysphagia - Cardiovascular Cardiovascular: dyspnea at rest, dyspnea on exertion, leg edema, orthopnea, palpitations, paroxysmal nocturnal dyspnea, no chest pain at rest, no chest pain with exertion, no lightheadedness, no syncope - Respiratory Respiratory: cough, dyspnea, no hemoptysis - Gastrointestinal Gastrointestinal: no abdominal pain, no constipation, no diarrhea, no dysphagia, no hematochezia, no melena - Genitourinary Genitourinary: no dysuria, no hematuria - Musculoskeletal Musculoskeletal: no arthralgias, no myalgias - Integumentary Integumentary: no erythema, no rash - Neurological Neurological: no dizziness, no focal weakness, no syncope - Psychiatric Psychiatric: no anxiety, no depression - Hematological/Lymphatic Hematologic/Lymphatic: no easy bleeding, no easy bruising Physical Examination Vital Signs, Last 4 Hours Pulse Resp BP Pulse Ox 09/20/18 08:52 96 14 113/87 96 General: Conversant, No Apparent Distress HEENT: Atraumatic, Normocephaly, Mucus Membranes Moist Neck: Normal carotid pulses, Other (JVD) Cardiac: Normal S1 and S2, No Murmur, Other (Irregular rate and rhythm) Lungs: Other (Bilateral crackles in lower lobes) Neuro: Alert and responsive, No focal deficits noted Abdomen: Soft, Non-Tender Skin: Other (Scarring over lower extremities) Extremities: No Clubbing, No Cyanosis, Normal Pulses, Other (Trace edema) Results 09/20/18 05:39 09/20/18 05:39 Lab Results 09/19/18 09/19/18 09/19/18 11:02 11:02 15:02 WBC Hgb Hct Plt Count D-Dimer Sodium 139 Potassium 4.8 Chloride 101 Carbon Dioxide 30 H BUN 16 Creatinine 0.90 Glucose 148 H Calcium 8.9 Magnesium 2.1 Total Bilirubin 0.6 AST 11 L ALT 17 Alkaline Phosphatase 81 Troponin I < 0.03 B-Natriuretic Peptide 530 H TSH 3.421 09/19/18 09/19/18 09/19/18 15:02 16:50 23:09 WBC Hgb Hct Plt Count D-Dimer 1367 H Sodium Potassium Chloride Carbon Dioxide BUN Creatinine Glucose Calcium Magnesium Total Bilirubin AST ALT Alkaline Phosphatase Troponin I < 0.03 < 0.03 B-Natriuretic Peptide TSH 09/20/18 09/20/18 09/20/18 05:39 05:39 05:39 WBC 7.6 Hgb 12.2 L D Hct 39.4 Plt Count 248 D-Dimer Sodium 140 Potassium 4.2 Chloride 100 Carbon Dioxide 32 H BUN 14 Creatinine 0.86 Glucose 123 H Calcium 8.7 Magnesium Total Bilirubin AST ALT Alkaline Phosphatase Troponin I < 0.03 B-Natriuretic Peptide TSH Consult Discharge Plan - Plan Referrals: NONE,PCP [Primary Care Provider] - <Rebecca Rodriguez - Last Filed: 09/20/18 14:19> Date of Encounter: 09/20/18 - Attending Attestation I examined this patient and my medical decision-making was reviewed with the Resident Physician. I agree with the documented findings, disposition and treatment plan as described. Mr. Marie presents with SOB. History of NICM thought secondary to alcoholic cardiomyopathy diagnosed in 2009. LV systolic function normalized based on Echo in 2013. Lost to follow up for the past 5 years. Has not seen a physician and stopped all of his medications. Echo being done at bedside - preliminary EF severely reduced. Suspect symptoms partially due to acute systolic CHF. Also has cirrhosis based on CTA done during hospitalization. Patient denies any alcohol use. Also denied smoking initially but continues to smoke. Await complete Echo report. Recommend starting guideline directed HF therapy. May need to consider cardiac catheterization since decline in LVEF is new when compared to 2014. Continue IV diuresis. AFIB is not new. Stop CCB and uptitrate BB. Pradaxa stopped until we finalize decisions regarding LHC. Assessment and Plan Discussion w patient/family: The assessment and plan as outlined above was discussed with the patient and/or family members who expressed understanding and agreement. All questions were answered. Thank you for involving us in the care of your patient. Please call with any questions. History of Present Illness History of present illness: Mr. Marie is a 53 year old male All Systems Review: The remainder of the systems were reviewed and are negative Physical Examination Vital Signs, Last 4 Hours Temp Pulse Resp BP Pulse Ox 09/20/18 11:43 97.7 F 104 16 116/83 92 Results 09/20/18 05:39 09/20/18 05:39 Lab Results 09/19/18 09/19/18 09/19/18 15:02 15:02 16:50 WBC Hgb Hct Plt Count D-Dimer 1367 H Sodium Potassium Chloride Carbon Dioxide BUN Creatinine Glucose Calcium Troponin I < 0.03 TSH 3.421 09/19/18 09/20/18 09/20/18 23:09 05:39 05:39 WBC 7.6 Hgb 12.2 L D Hct 39.4 Plt Count 248 D-Dimer Sodium Potassium Chloride Carbon Dioxide BUN Creatinine Glucose Calcium Troponin I < 0.03 < 0.03 TSH 09/20/18 05:39 WBC Hgb Hct Plt Count D-Dimer Sodium 140 Potassium 4.2 Chloride 100 Carbon Dioxide 32 H BUN 14 Creatinine 0.86 Glucose 123 H Calcium 8.7 Troponin I TSH
[2018-09-20] MEDS: *HR* Heparin 5,000 UNIT/ML VIAL SQ SCH (16:38)
[2018-09-21 03:12] LABS: Basophils # 0.1 K/mcL (0.0-0.2); Basophils % 0.8 %; Eosinophils # 0.2 K/mcL (0.0-0.6); Hematocrit 40.7 % (37.5-50.1); Hemoglobin 12.9 g/dL (12.9-16.9); Immature Granulocytes % 0.2 % (0-4); Lymphocytes # 2.1 K/mcL (0.6-4.6); Mean Corpuscular HGB Conc 31.7 g/dL (31.6-35.5); Mean Corpuscular Hemoglobin 30.4 pg (28.0-33.3); Mean Platelet Volume 8.7 fL (9.4-12.4); Monocytes # 0.5 K/mcL (0.0-1.3); Monocytes % 8.5 %; Neutrophils # 3.5 K/mcL (1.6-8.9); Platelet Count 260 K/mcL (140-400); Red Blood Count 4.24 M/mcL (4.19-5.50); Red Cell Distribution Width 13.6 % (11.5-14.5); Segmented Neutrophils % 54.5 %
[2018-09-21 03:33] LABS: BUN/Creatinine Ratio 16 (6-26); Blood Urea Nitrogen 16 mg/dL (6-20); Calcium 8.6 mg/dL (8.6-10.3); Carbon Dioxide 35 mEq/L (23-29); Chloride 99 mEq/L (98-107); Glucose 117 mg/dL (70-105); Osmolality,Calculated 290 (280-300); Sodium 139 mEq/L (136-145); eGFR For Non-African Americans > 60 (> 60)
[2018-09-21] MEDS: *HR* Heparin 5,000 UNIT/ML VIAL SQ SCH (05:25)
[2018-09-21] MEDS: Aspirin Enteric Coated 81 MG Tablet PO SCH (08:08)
[2018-09-21] MEDS: Levofloxacin 750 MG/150 ML 750 MG/150 ML BAG IVPB SCH (08:08)
[2018-09-21] MEDS: Furosemide 40 MG/4 ML VIAL IVP SCH ×2 (08:08→17:30)
[2018-09-21] MEDS: Metoprolol XL (24 HR) Succ 50 MG TAB.ER.24H PO SCH (08:08)
--- NOTE | 2018-09-21 08:22 | Internal Med Progress Note ---
<Vivien Desai N - Last Filed: 09/21/18 17:20> Hospitalist Progress Note - Encounter Date of Encounter: 09/21/18 Time of Encounter: 08:22 - Subjective Interval History: Patient was seen and evaluated at the bedside. He feels is associated with having not eaten this morning. Patient denies any ongoing chest pain or shortness of breath.Patient's heart rate noted to be elevated in the 130s this morning. Nursing staff has contacted cardiology, with recommendation for additional 25 mg dose of metoprolol. He is currently awaiting cardiac stress test. - Exam Vitals: Temp Pulse Resp BP Pulse Ox 97.7 F 119 14 103/81 95 09/21/18 06:40 09/21/18 06:40 09/21/18 06:40 09/21/18 06:40 09/21/18 06:40 Exam: GENERAL: Well-developed, well-nourished adult male in no acute distress. HEENT: Atraumatic and normocephalic. CARDIOVASCULAR: Irregular rhythm and tachycardic rate. S1 and S2 present. No murmurs, gallops, or rubs. RESPIRATORY: Clear to auscultation bilaterally. Chest rises and falls symmetrically without accessory muscle use. GASTROINTESTINAL: Abdomen is soft, nontender, nondistended. Active bowel sounds present 4 quadrants. EXTREMITIES: No clubbing or cyanosis. Mild nonpitting bilateral lower extremity edema. SKIN: Warm, dry, and intact. NEUROLOGIC: Alert and oriented x3. Patient is cooperative with exam and answers questions appropriately. No apparent focal deficits. PSYCHIATRIC: Appropriate mood and affect. - Assessment and Plan (1) Atrial fibrillation with rapid ventricular response Current Visit: Yes Status: Acute Assessment and Plan: Patient probably has a history of atrial fibrillation, and has had pacemaker insertion in the past. He is been reportedly noncompliant with medications, having not taken any for the last 5 years. Patient was initially started on Cardizem drip for rate control; however, this was discontinued due to low ejection fraction. Per cardiology, patient is to be started on digoxin, as well as a heparin drip. Plan for left heart catheterization to be performed tomorrow. - Continue metoprolol and digoxin per cardiology recommendations. - [facility] plan for tomorrow. Patient to be NPO after midnight. - Continue telemetry monitoring. (2) Congestive heart failure (CHF) Current Visit: Yes Status: Acute Assessment and Plan: Echocardiogram demonstrated LVEF 20-25% with severe global left ventricular systolic dysfunction. Patient was also noted to have moderate biatrial enla rgement, mild to moderate mitral regurgitation, moderate tricuspid regurgitation, and moderate pulmonary hypertension. - Continue IV Lasix 40 mg BID. - Fluid restriction to 1.5 L daily. Strict I's and O's and daily weights. - Appreciate cardiology recommendations regarding this problem. (3) Tobacco abuse Current Visit: Yes Status: Chronic Assessment and Plan: - Tobacco cessation counseling provided. - Nicotine patch PRN. (4) DVT prophylaxis Current Visit: Yes Status: Acute Assessment and Plan: - Heparin SQ. - Time Spent with Patient Total time spent is greater than 50% in coordination of care (as documented) at patient's floor/unit and/or counseling patient: Internal Medicine: Result - Labs CBC & Chem 7: 09/21/18 12:06 09/21/18 02:38 Labs: Short CBC 09/21/18 Range/Units 02:38 WBC 6.4 (4.3-11.1) K/mcL Hgb 12.9 (12.9-16.9) g/dL Hct 40.7 (37.5-50.1) % Plt Count 260 (140-400) K/mcL Neutrophils # 3.5 (1.6-8.9) K/mcL BMP 09/21/18 02:38 Sodium 139 Potassium 4.0 Chloride 99 Carbon Dioxide 35 H BUN 16 Creatinine 1.00 Glucose 117 H Calcium 8.6 - ABG Interpretation ABG results: PT/INR, D-dimer PT 13.0 Seconds (9.4-12.1) H 09/19/18 11:02 D-Dimer 1367 ng/mLFEU (0-500) H 09/19/18 15:02 - Impressions Impressions Abdomen/Pelvis CTA 09/19/18 11:21 IMPRESSION: 1. No evidence of mesenteric ischemia. 2. Findings compatible with diffuse 3rd spacing/elevated central venous pressures, including interstitial pulmonary edema, small to moderate bilateral pleural effusions, small amount of ascites, and diffuse soft tissue anasarca. 3. Severe edema of the gallbladder wall, which is favored to be related to the diffusely edematous state. No gallstones are seen. D/ / 09/19/2018 12:20:57 Giorgio Hearn MD / [facility] Interpreting Provider: Giorgio Hearn MD Chest CTA 09/19/18 18:01 IMPRESSION: 1. No acute pulmonary artery embolism. 2. Cardiomegaly with vascular congestion and bilateral pleural effusions. 3. Cirrhotic appearance of the liver. D/ / 09/19/2018 19:07:36 Samuel Alford MD / [email or web address] Interpreting Provider: Samuel Alford MD Echocardiogram 09/20/18 10:00 Impressions: LVEF 20-25%. Severe global left ventricular systolic dysfunction. Normal right ventricular structure and function. Moderate biatrial enlargement Mild-moderate mitral regurgitation. Moderate tricuspid regurgitation. Moderate pulmonary hypertension. Estimated RVSP is 54 mmHg. The IVC is dilated. A device lead was visualized in the right atrium and right ventricle. Covering hospitalist notified via the paging system Left Ventricular Wall Motion: Rest Echo Findings The apex, apical inferior, mid inferior, basal inferior, apical anterior, mid anterior, basal anterior, apical septal, mid inferior septal, basal inferior septal, apical lateral, mid anterior lateral, basal anterior lateral, mid anterior septal, mid inferior lateral, basal anterior septal and basal inferior lateral schultz were hypokinetic. Findings: Study Quality * Technically adequate exam. ECG Findings * Atrial fibrillation. Left Ventricle * LVEF 20-25%. * Severe global left ventricular systolic dysfunction. * Indeterminate diastolic function. * There is no LV thrombus. * Definity echo contrast was used. * Mild concentric left ventricular hypertrophy. * Moderately dilated left ventricle. Right Ventricle * Normal right ventricular structure and function. Left Atrium * Moderately dilated left atrium. Right Atrium * Moderately dilated right atrium. Aortic Valve * Trileaflet aortic valve. * Normal aortic valve structure. * No aortic regurgitation. * No aortic stenosis. Mitral Valve * Normal mitral valve structure. * No mitral stenosis. * Mild-moderate mitral regurgitation. Tricuspid Valve * Moderate tricuspid regurgitation. * Moderate pulmonary hypertension. Estimated RVSP is 54 mmHg. * Estimated RVSP is 54 mmHg. * Estimated RA pressure is 15 mmHg. * No tricuspid stenosis. * Normal tricuspid valve structure. Pulmonic Valve * Trace pulmonic regurgitation. Aorta * Normally sized aortic root. Pericardium * There is a trivial pericardial effusion present. IVC * The IVC is dilated. Pleural Effusion * Moderate pleural effusion. Device lead * A device lead was visualized in the right atrium and right ventricle. Pulmonary Artery * Normal visualized portions of the main pulmonary artery. Consult Discharge Plan - Plan Referrals: Janny Rutledge SPECTROSCOPIST [Advanced Practice Nurse] - 09/29/18 1:00 pm (Please arrive 15 minutes prior to you appointment!) NONE,PCP [Primary Care Provider] - <Evan Cordoba - Last Filed: 09/21/18 17:31> Hospitalist Progress Note - Encounter Date of Encounter: 09/21/18 - Exam Vitals: Temp Pulse Resp BP Pulse Ox 97.5 F L 127 16 104/92 95 09/21/18 11:50 09/21/18 11:50 09/21/18 11:50 09/21/18 11:50 09/21/18 11:50 - Assessment and Plan (1) Atrial fibrillation with rapid ventricular response Current Visit: Yes Status: Acute (2) Congestive heart failure (CHF) Current Visit: Yes Status: Acute (3) Tobacco abuse Current Visit: Yes Status: Chronic (4) Pneumonia Current Visit: Yes Status: Suspected (5) DVT prophylaxis Current Visit: Yes Status: Acute - Time Spent with Patient Total time spent is greater than 50% in coordination of care (as documented) at patient's floor/unit and/or counseling patient: Internal Medicine: Result - Labs CBC & Chem 7: 09/21/18 12:06 09/21/18 02:38 Labs: Short CBC 09/21/18 Range/Units 02:38 WBC 6.4 (4.3-11.1) K/mcL Hgb 12.9 (12.9-16.9) g/dL Hct 40.7 (37.5-50.1) % Plt Count 260 (140-400) K/mcL Neutrophils # 3.5 (1.6-8.9) K/mcL BMP 09/21/18 02:38 Sodium 139 Potassium 4.0 Chloride 99 Carbon Dioxide 35 H BUN 16 Creatinine 1.00 Glucose 117 H Calcium 8.6 - ABG Interpretation ABG results: PT/INR, D-dimer PT 13.0 Seconds (9.4-12.1) H 09/19/18 11:02 D-Dimer 1367 ng/mLFEU (0-500) H 09/19/18 15:02 - Impressions Impressions Chest CTA 09/19/18 18:01 IMPRESSION: 1. No acute pulmonary artery embolism. 2. Cardiomegaly with vascular congestion and bilateral pleural effusions. 3. Cirrhotic appearance of the liver. D/ / 09/19/2018 19:07:36 [facility] / [facility] Inter[facility]ting Provider: Samuel Alford MD Echocardiogram 09/20/18 10:00 Impressions: LVEF 20-25%. Severe global left ventricular systolic dysfunction. Normal right ventricular structure and function. Moderate biatrial enlargement Mild-moderate mitral regurgitation. Moderate tricuspid regurgitation. Moderate pulmonary hypertension. Estimated RVSP is 54 mmHg. The IVC is dilated. A device lead was visualized in the right atrium and right ventricle. Covering hospitalist notified via the paging system Left Ventricular Wall Motion: Rest Echo Findings The apex, apical inferior, mid inferior, basal inferior, apical anterior, mid anterior, basal anterior, apical septal, mid inferior septal, basal inferior septal, apical lateral, mid anterior lateral, basal anterior lateral, mid anterior septal, mid inferior lateral, basal anterior septal and basal inferior lateral schultz were hypokinetic. Findings: Study Quality * Technically adequate exam. ECG Findings * Atrial fibrillation. Left Ventricle * LVEF 20-25%. * Severe global left ventricular systolic dysfunction. * Indeterminate diastolic function. * There is no LV thrombus. * Definity echo contrast was used. * Mild concentric left ventricular hypertrophy. * Moderately dilated left ventricle. Right Ventricle * Normal right ventricular structure and function. Left Atrium * Moderately dilated left atrium. Right Atrium * Moderately dilated right atrium. Aortic Valve * Trileaflet aortic valve. * Normal aortic valve structure. * No aortic regurgitation. * No aortic stenosis. Mitral Valve * Normal mitral valve structure. * No mitral stenosis. * Mild-moderate mitral regurgitation. Tricuspid Valve * Moderate tricuspid regurgitation. * Moderate pulmonary hypertension. Estimated RVSP is 54 mmHg. * Estimated RVSP is 54 mmHg. * Estimated RA pressure is 15 mmHg. * No tricuspid stenosis. * Normal tricuspid valve structure. Pulmonic Valve * Trace pulmonic regurgitation. Aorta * Normally sized aortic root. Pericardium * There is a trivial pericardial effusion present. IVC * The IVC is dilated. Pleural Effusion * Moderate pleural effusion. Device lead * A device lead was visualized in the right atrium and right ventricle. Pulmonary Artery * Normal visualized portions of the main pulmonary artery. - Attending Attestation I examined this patient and my medical decision-making was reviewed with the Resident Physician. I agree with the documented findings, disposition and treatment plan as described except to the extent set forth below. Patient seen and examined at bedside. Patient has no complaints. He denies any chest pain or palpitations. On exam heart is irregularly irregular, tachycardic. Lungs are clear to auscultation bilaterally, no rales, rhonchi, wheezes Atrial fibrillation with rapid ventricular response, heart rate greater than 100s morning. Asymptomatic. Hold calcium channel blockers given systolic function decreased. Appreciate cardiology recommendations, further recommendations will load with digoxin today. Heparin drip started. Left heart catheterization tomorrow Chronic systolic heart failure: Echo reviewed shows EF of 20-25% with global ventricular systolic dysfunction, possibly due to long-standing alcohol use. Left heart catheterization tomorrow <Vivien Desai N - Last Filed: 09/21/18 17:20> (2) Congestive heart failure (CHF) Qualifiers: Heart failure type: systolic Heart failure chronicity: acute on chronic Qualified Code(s): I50.23 - Acute on chronic systolic (congestive) heart failure <Evan Cordoba G - Last Filed: 09/21/18 17:31> (2) Congestive heart failure (CHF) Qualifiers: Heart failure type: systolic Heart failure chronicity: acute on chronic Qualified Code(s): I50.23 - Acute on chronic systolic (congestive) heart failure (4) Pneumonia Qualifiers: Pneumonia type: due to unspecified organism Laterality: right Lung location: lower lobe of lung Qualified Code(s): J18.1 - Lobar pneumonia, unspecified organism
[2018-09-21] MEDS ORDERED: *HR* Heparin 5,000 UNIT/ML VIAL IVP PRN ×3 (11:25→11:26)
[2018-09-21] MEDS ORDERED: *HR* Heparin 5,000 UNIT/ML VIAL IVP ONE (11:26)
[2018-09-21] MEDS ORDERED: *HR* Digoxin 0.5 MG/2 ML AMPUL IVP ONE ×2 (11:30→11:34)
[2018-09-21] MEDS ORDERED: Heparin 25,000 UNIT/250 ML D5W 25,000 UNIT/250 ML IV.SOLN IVC SCH (11:30)
[2018-09-21] MEDS ORDERED: Nicotine 21 MG PATCH.TD24 TD ONE (11:41)
--- NOTE | 2018-09-21 11:45 | Cardiology Progress Note ---
<Jyoti Mcknight - Last Filed: 09/21/18 11:51> Date of Encounter: 09/21/18 Time of Encounter: 11:43 Assessment and Plan (1) Atrial fibrillation with rapid ventricular response Current Visit: Yes Status: Acute History of atrial fibrillation Has been off all medications for past 5 years TSH WNL Defibrillator to be interrogated Avg HR overnight 119 Continue metoprolol 50 mg Start digoxin loading dose, 0.5 mg now, then 0.25 mg in 6 hours followed by second 0.25 mg dose Heparin drip Continuous cardiac monitoring Goal of optimizing rate control for [facility] tomorrow NPO at midnight (2) Congestive heart failure (CHF) Current Visit: Yes Status: Acute History of heart failure, 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 Last Echo 2013- LVEF 60%, normal left ventricular structure and function, mild left ventricular diastolic dysfunction, normal RV structure and function, no evidence of pulmonary hypertension, device lead visualized in rigth atrium and right ventricle, no significant valvular dysfunction, EF had improved. Echo 09/20/18- LVEF 20-25%, severe global left ventricular dysfunction, normal RV structure and function, moderate biatrial enlargement, mild-moderate mitral regurgitation, moderate tricuspid regurgitation, moderate pulmonart hypertension, IVC is dilated, device lead visualized in R atrium and R ventricle. Continue Lasix, metoprolol 50 mg Strict I&O Fluid restriction 1.5 L [facility] tomorrow Qualifiers: Heart failure type: systolic Heart failure chronicity: acute Qualified Code(s): I50.21 - Acute systolic (congestive) heart failure (3) Alcoholic cardiomyopathy Current Visit: Yes Status: Acute History of alcoholic cardiomyopathy Patient states he no longer drinks as much as prior CTA chest showed cardiomegaly with vascular congestion and bilateral pleural effusions, cirrhotic appearance of liver See managment for CHF (4) Pneumonia Current Visit: Yes Status: Suspected Patient being treated for pneumonia CTA chest negative for PE Continue levofloxacin . Qualifiers: Pneumonia type: due to unspecified organism Laterality: right Lung location: lower lobe of lung Qualified Code(s): J18.1 - Lobar pneumonia, unspecified organism (5) CAD (coronary artery disease) Current Visit: Yes Status: Chronic Possible history of CAD Old records show LHC done in 2009, however report is unavailable. Denies prior MIs Continue aspirin, atorvastatin, metoprolol Qualifiers: Coronary Disease-Associated Artery/Lesion type: unspecified vessel or lesion type [place] vs. transplanted heart: unspecified whether [place] or transplanted heart Associated angina: angina presence unspecified Qualified Code(s): I25.10 - Atherosclerotic heart disease of [place] coronary artery without angina pectoris (6) Tobacco abuse Current Visit: Yes Status: Chronic Discussed smoking cessation Advised to quit to reduce risk factors (7) DVT prophylaxis Current Visit: Yes Status: Acute Heparin drip Discussion w patient/family: The assessment and plan as outlined above was discussed with the patient and/or family members who expressed understanding and agreement. All questions were answered. Thank you for involving us in the care of your patient. Please call with any questions. Subjective Principal diagnosis: CHF, Afib Interval history: Patient seen and examined at bedside today. He states that his shortness of breath is much improved. His echo showed decreased LV function from previous, LVEF currently 20-25%. He states that he quit medications 5 years ago and quit drinking one case of beer per day 1.5 years ago. Patient interested in pursuing LHC, however, HR is not yet under control. Will further titrate medications to control atrial fibrillation with possible LHC tomorrow. Objective General: Conversant, No Apparent Distress HEENT: Atraumatic, Normocephaly, Mucus Membranes Moist Neck: Normal carotid pulses (Elevated JVD) Cardiac: Normal S1 and S2, No Murmur, Other (Irregular rate and rhythm) Lungs: Normal Breath Sounds, No Wheeze, Rales, Rhonchi Neuro: Alert and responsive, No focal deficits noted Abdomen: Soft, Non-Tender Skin: No rashes noted on visualized skin Musculoskeletal: No Chest Wall Tenderness Extremities: No Clubbing, No Cyanosis, Normal Pulses, Other (Trace edema) Results 09/21/18 02:38 09/21/18 02:38 Lab Results 09/21/18 09/21/18 02:38 02:38 WBC 6.4 Hgb 12.9 Hct 40.7 Plt Count 260 Sodium 139 Potassium 4.0 Chloride 99 Carbon Dioxide 35 H BUN 16 Creatinine 1.00 Glucose 117 H Calcium 8.6 Consult Discharge Plan - Plan Referrals: Janny Rutledge, [facility] [Advanced Practice Nurse] - 09/29/18 1:00 pm (Please arrive 15 minutes prior to you appointment!) NONE,PCP [Primary Care Provider] - <Rebecca Rodriguez - Last Filed: 09/21/18 14:10> Date of Encounter: 09/21/18 Assessment and Plan Discussion w patient/family: I examined this patient and my medical decision-making was reviewed with the Resident Physician. I agree with the documented findings, disposition and treatment plan as described. 1. Acute systolic CHF, chronicity unknown: History of NICM which normalized based on Echo from 2013. He was diagnosed with alcoholic cardiomyopathy around that time. He was lost to follow up and stopped all of his meds for the past 5 years. He returns with newly discovered, chronicity unknown, systolic CHF. Patient states he stopped drinking alcohol about 1 year ago. He continues to smoke cigarettes and has ongoing risk factors for CAD. Discussed LHC with the patient and . The R/B/A of the procedure were discussed in detail. Patient denies history of bleeding events. Labs including blood count and renal function is normal. No upcoming elective procedures. He is full code. Considered doing the procedure today but heart rates are uncontrolled. Recommend optimizing heart rate control prior to proceeding. Otherwise diuresing well. Continue with IV diuresis. 2. AFIB: Known history of AFIB, presuming chronic. Heart rates uncontrolled this morning after diltiazem was stopped due to heart failure. Recommend uptitrating BB as BP tolerates. Will give Digoxin load and then start PO maintenance. In regards to anticoagulation, CHADSVASC is 2. Previously on pradaxa which was restarted by Hospitalist. We stopped in anticipation of LHC. Will start heparin gtt. 3. Liver Cirrhosis: Seen on CT scan. LFTs are normal. Will defer management to hospitalist. 4. Tobacco abuse: Strongly encouraged smoking cessation. Objective Vital Signs, Last 4 Hours Temp Pulse Resp BP Pulse Ox 09/21/18 11:50 97.5 F L 127 16 104/92 95 Results 09/21/18 12:06 09/21/18 02:38 Lab Results 09/21/18 09/21/18 09/21/18 02:38 02:38 12:06 WBC 6.4 6.5 Hgb 12.9 14.7 D Hct 40.7 46.8 Plt Count 260 307 INR Sodium 139 Potassium 4.0 Chloride 99 Carbon Dioxide 35 H BUN 16 Creatinine 1.00 Glucose 117 H Calcium 8.6 09/21/18 12:06 WBC Hgb Hct Plt Count INR 1.3 Sodium Potassium Chloride Carbon Dioxide BUN Creatinine Glucose Calcium
[2018-09-21 12:25] LABS: Hematocrit 46.8 % (37.5-50.1); Mean Corpuscular HGB Conc 31.4 g/dL (31.6-35.5); Mean Corpuscular Hemoglobin 30.2 pg (28.0-33.3); Mean Corpuscular Volume 96.3 fL (83.0-100.0); Mean Platelet Volume 8.6 fL (9.4-12.4); Platelet Count 307 K/mcL (140-400); Red Blood Count 4.86 M/mcL (4.19-5.50); Red Cell Distribution Width 13.4 % (11.5-14.5)
[2018-09-21 12:26] LABS: Hemoglobin 14.7 g/dL (12.9-16.9)
[2018-09-21 12:32] LABS: Heparin anti-factor XA UFH 0.04 IU/mL (0.30-0.70); INR 1.3; Prothrombin Time 15.1 Seconds (9.4-12.1)
[2018-09-21] MEDS: Heparin 25,000 UNIT/250 ML D5W 25,000 UNIT/250 ML IV.SOLN IVC SCH (14:32)
[2018-09-21] MEDS: *HR* Digoxin 0.5 MG/2 ML AMPUL IVP SCH (17:31)
[2018-09-22] MEDS: *HR* Digoxin 0.5 MG/2 ML AMPUL IVP SCH (00:22)
[2018-09-22] MEDS: Heparin 25,000 UNIT/250 ML D5W 25,000 UNIT/250 ML IV.SOLN IVC SCH (02:16)
[2018-09-22 04:22] LABS: Basophils # 0.1 K/mcL (0.0-0.2); Basophils % 0.7 %; Eosinophils # 0.2 K/mcL (0.0-0.6); Eosinophils % 1.7 %; Hematocrit 47.6 % (37.5-50.1); Hemoglobin 15.3 g/dL (12.9-16.9); Immature Granulocytes % 0.3 % (0-4); Lymphocytes # 2.2 K/mcL (0.6-4.6); Lymphocytes % 22.9 %; Mean Corpuscular HGB Conc 32.1 g/dL (31.6-35.5); Mean Corpuscular Volume 93.3 fL (83.0-100.0); Mean Platelet Volume 8.7 fL (9.4-12.4); Monocytes # 0.9 K/mcL (0.0-1.3); Monocytes % 8.9 %; Neutrophils # 6.4 K/mcL (1.6-8.9); Platelet Count 283 K/mcL (140-400); Red Cell Distribution Width 13.4 % (11.5-14.5); Segmented Neutrophils % 65.5 %
[2018-09-22 04:41] LABS: BUN/Creatinine Ratio 18 (6-26); Blood Urea Nitrogen 20 mg/dL (6-20); Calcium 8.8 mg/dL (8.6-10.3); Carbon Dioxide 34 mEq/L (23-29); Chloride 98 mEq/L (98-107); Glucose 123 mg/dL (70-105); Osmolality,Calculated 292 (280-300); Potassium 4.2 mEq/L (3.5-5.1); Sodium 139 mEq/L (136-145); eGFR For Non-African Americans > 60 (> 60)
[2018-09-22] MEDS: Metoprolol XL (24 HR) Succ 50 MG TAB.ER.24H PO SCH (07:57)
[2018-09-22] MEDS: Furosemide 40 MG/4 ML VIAL IVP SCH (07:57)
[2018-09-22] MEDS: Aspirin Enteric Coated 81 MG Tablet PO SCH (07:57)
[2018-09-22] MEDS ORDERED: *HR* Digoxin 0.125 MG TABLET PO SCH (09:00)
--- NOTE | 2018-09-22 09:40 | Cardiology Progress Note ---
Date of Encounter: 09/22/18 Time of Encounter: 09:40 Assessment and Plan (1) Atrial fibrillation with rapid ventricular response Current Visit: Yes Status: Acute History of atrial fibrillation Has been off all medications for past 5 years TSH WNL Avg HR overnight 96 Continue metoprolol 50 mg Continue digoxin 0.125 mg Restarted pradaxa for anticoagulation Medtronic defibrillator- Available daily lead measurements within range of expected. lead trends stable. battery approaching recommended replacement time, current battery measurement 2.64v with replacement voltage recommended at 2.63v. Device has not yet triggered replacement indicator. Right ventricular capture threshold not available. Arrhythmias/high rate episodes detected since last interoggation since last check on 10/18/12 1,093 VTNS classified, 17 SVT. Patient has agreed to close follow up with cardiology. All questions and concerns addressed. Cardiology will sign off and follow up has been arranged. 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 Last Echo 2013- LVEF 60%, normal left ventricular structure and function, mild left ventricular diastolic dysfunction, normal RV structure and function, no evidence of pulmonary hypertension, device lead visualized in rigth atrium and right ventricle, no significant valvular dysfunction, EF had improved. Echo 09/20/18- LVEF 20-25%, severe global left ventricular dysfunction, normal RV structure and function, moderate biatrial enlargement, mild-moderate mitral regurgitation, moderate tricuspid regurgitation, moderate pulmonart hypertension, IVC is dilated, device lead visualized in R atrium and R ventricle . Continue Lasix, metoprolol 50 mg Strict I&O Fluid restriction 1.5 L Discussed daily weights and to call cardiology if weight increase of 3-5 lbs Qualifiers: Heart failure type: systolic Heart failure chronicity: acute on chronic Qualified Code(s): I50.23 - Acute on chronic systolic (congestive) heart failure (3) Alcoholic cardiomyopathy Current Visit: Yes Status: Acute History of alcoholic cardiomyopathy Patient states he no longer drinks as much as prior CTA chest showed cardiomegaly with vascular congestion and bilateral pleural ef fusions, cirrhotic appearance of liver See managment for CHF (4) CAD (coronary artery disease) Current Visit: Yes Status: Chronic Possible history of CAD Old records show LHC done in 2009, however report is unavailable. Denies prior MIs Continue aspirin, atorvastatin, metoprolol Qualifiers: Coronary Disease-Associated Artery/Lesion type: unspecified vessel or lesion type [place] vs. transplanted heart: unspecified whether [place] or transplanted heart Associated angina: angina presence unspecified Qualified Code(s): I25.10 - Atherosclerotic heart disease of [place] coronary artery without angina pectoris (5) Tobacco abuse Current Visit: Yes Status: Chronic Discussed smoking cessation Advised to quit to reduce risk factors (6) DVT prophylaxis Current Visit: Yes Status: Acute Pradaxa Discussion w patient/family: The assessment and plan as outlined above was discussed with the patient and/or family members who expressed understanding and agreement. All questions were answered. Thank you for involving us in the care of your patient. Please call with any questions. Subjective Principal diagnosis: CHF, Afib Interval history: Patient seen and examined at bedside today. He states that he is feeling well, HR more controlled, average HR overnight was 96. Discussed LHC with i nterventional radiologist who recommends medical management of CHF and atrial fibrllation with close follow up and possible LHC in the future. Patient in agreement. Objective Vital Signs, Last 4 Hours Temp Pulse Resp BP Pulse Ox 09/22/18 07:10 98.5 F 90 18 114/73 92 General: Conversant, No Apparent Distress HEENT: Atraumatic, Normocephaly, Mucus Membranes Moist Neck: Normal carotid pulses, Other (JVD distension improved) Cardiac: Normal S1 and S2, No Murmur, Other (Irregularly irregular) Lungs: Normal Breath Sounds, No Wheeze, Rales, Rhonchi Neuro: Alert and responsive, No focal deficits noted Abdomen: Soft, Non-Tender Skin: No rashes noted on visualized skin Musculoskeletal: No Chest Wall Tenderness Extremities: No Clubbing, No Cyanosis, No Edema, Normal Pulses Results 09/22/18 03:53 09/22/18 03:53 Lab Results 09/21/18 09/21/18 09/22/18 12:06 12:06 03:53 WBC 6.5 9.8 D Hgb 14.7 D 15.3 Hct 46.8 47.6 Plt Count 307 283 INR 1.3 Sodium Potassium Chloride Carbon Dioxide BUN Creatinine Glucose Calcium 09/22/18 03:53 WBC Hgb Hct Plt Count INR Sodium 139 Potassium 4.2 Chloride 98 Carbon Dioxide 34 H BUN 20 Creatinine 1.11 Glucose 123 H Calcium 8.8 Consult Discharge Plan - Plan Referrals: Janny Rutledge CNP [Advanced Practice Nurse] - 09/29/18 1:00 pm (Please arrive 15 minutes prior to you appointment!) NONE,PCP [Primary Care Provider] -
[2018-09-22] MEDS ORDERED: *HR* Dabigatran 150 MG CAPSULE PO SCH (09:45)
[2018-09-22 10:44] VITALS: BP 110/77
--- NOTE | 2018-09-22 12:52 | Discharge Summary ---
- NOTES TO OUTPATIENT PROVIDER Notes to Outpatient Provider: Needs to be compliant with medication Date of Encounter: 09/22/18 Time of Encounter: 12:46 - Discharge Diagnosis (1) Atrial fibrillation with rapid ventricular response Priority: Primary Status: Acute (2) Congestive heart failure (CHF) Priority: Primary Status: Acute Qualifiers: Heart failure type: systolic Heart failure chronicity: acute on chronic Qualified Code(s): I50.23 - Acute on chronic systolic (congestive) heart failure (3) Tobacco abuse Priority: Secondary Status: Chronic (4) Pneumonia Priority: Secondary Status: Ruled-out Qualifiers: Pneumonia type: due to unspecified organism Laterality: right Lung location: lower lobe of lung Qualified Code(s): J18.1 - Lobar pneumonia, unspecified organism Hospital course: Mr. Marie is a 53 year old male with history of chronic alcohol abuse and chronic systolic heart failure presented with shortness of breath. Patient was treated for acute on chronic exacerbation of his systolic heart failure. He was aggressively diuresed and symptomatically feels much improved. He is found to be in A. fib and was treated with Toprol-XL and Pradaxa for anticoagulation. Patient underwent repeat echocardiogram that showed an EF of 20-25%. He was evaluated by cardiology who plan outpatient follow-up for continued treatment of his systolic heart failure. Patient did state that he had difficulty obtaining his medications so we will fill his medications through our pharmacy and make sure he has these prior to discharge. Patient will be discharged home in stable condition. Discharge discussed with: patient, family - Time Spent with Patient Total time spent providing and/or coordinating discharge services: Time spent: Greater than 30 minutes (40 minutes) - Discharge Medications Prescriptions: New Aspirin Enteric Coated [Aspirin EC] 81 mg PO DAILY #30 tablet. Atorvastatin [Lipitor] 40 mg PO HS #30 tablet Dabigatran [Pradaxa] 150 mg PO BID #60 capsule Digoxin [Lanoxin] 0.125 mg PO DAILY #30 tablet Furosemide [Lasix] 40 mg PO DAILY #30 tablet Lisinopril [Zestril] 2.5 mg PO DAILY #30 tablet Metoprolol XL (24 HR) Succ [Toprol Xl] 50 mg PO DAILY #30 tab.er.24h Home Medications: Aspirin Enteric Coated [Aspirin EC] 81 mg PO DAILY #30 tablet. 09/22/18 [Rx] Atorvastatin [Lipitor] 40 mg PO HS #30 tablet 09/22/18 [Rx] Dabigatran [Pradaxa] 150 mg PO BID #60 capsule 09/22/18 [Rx] Digoxin [Lanoxin] 0.125 mg PO DAILY #30 tablet 09/22/18 [Rx] Furosemide [Lasix] 40 mg PO DAILY #30 tablet 09/22/18 [Rx] Lisinopril [Zestril] 2.5 mg PO DAILY #30 tablet 09/22/18 [Rx] Metoprolol XL (24 HR) Succ [Toprol Xl] 50 mg PO DAILY #30 tab.er.24h 09/22/18 [Rx] Allergies/Adverse Reactions: Allergy/AdvReac Type Severity Reaction Status Date / Time No Known Allergies Allergy Verified 09/19/18 15:27 Date of admission: 09/21/18 12:45 Primary care physician: PCP SHABANA Consults: 09/19/18 14:13 Consult to Cardiology [CONS] Routine Comment: Consulting Provider: Cardiology Anette Reason for Consult: a.fib with Rv[facility]. might need pacemaker interrogation Call Completed: No Discharging clinician: Evan Cordoba Anticipated date of discharge: 09/22/18 - Constitutional Vitals: Temp Pulse Resp BP Pulse Ox 98.4 F 100 16 110/77 94 09/22/18 10:41 09/22/18 10:41 09/22/18 10:41 09/22/18 10:41 09/22/18 10:41 Exam: . - Respiratory Respiratory exam: Present: CTAB. Absent: rales, rhonchi, wheezes - Cardiovascular Cardiovascular exam: Present: irregular rhythm. Absent: gallop, rubs, systolic murmur, tachycardia - Patient Status Disposition: Home, Self-Care Condition: Fair Functional capacity at discharge: independent ambulation Overall status at discharge: patient is progressing back to baseline - Discharge Instructions Follow Up With: Janny Rutledge [employer]ER [Advanced Practice Nurse] - 09/29/18 1:00 pm (Please arrive 15 minutes prior to you appointment!) NONE,PCP [Primary Care Provider] - Additional Instructions: Please follow-up with your primary care physician within one week. Please follow-up with cardiology as scheduled. Please take all your medications as prescribed. Please return for any new or worsening symptoms. - Diet and Activity Activity: increase activity as tolerated Diet: low fat, low cholesterol, low salt diet
== END 2018-09-22 14:41 | disposition home or self-care (01) | DRG 201 ==
LOC: 2SOUTHHOLD 10:42 → EMEROOARM 10:42 → SUATTDRO 13:49 → 2SOUTHHOLD 14:59
PROVIDERS: ADMIT Internal Medicine; ATTEND Internal Medicine